=== PATIENT | male | born 1965 ===

== ENCOUNTER 2024-07-29 18:28 | Emergency (ER) | payer OTHER ==
[2024-07-29] MEDS ORDERED: Acetaminophen 325 MG TAB ONE (19:23)
[2024-07-29] MEDS ORDERED: Bacitracin 1 PK ONE (19:23)
[2024-07-29] MEDS ORDERED: Boostrix 0.5 ML (Tdap) VIAL (>/=7 yrs of age) ONE (19:24)
== END 2024-07-29 20:02 | disposition home or self-care (01) ==
LOC: NAV ERS 18:28
DX: S67.193A Crushing injury of left middle finger, initial encounter (principal); Z23 Encounter for immunization; W23.0XXA Caught, crushed, jammed, or pinched between moving objects, initial encounter
CPT/HCPCS: 90471; 90715